=== PATIENT | female | born 1950 | race African-American/Black ===

== ENCOUNTER → 2018-09-30 | Outpatient (CLI) | payer MEDICARE, MEDICAID | END | disposition home or self-care (01) | LOC: MRI 09:01 | PROVIDERS: ATTEND Psychiatry & Neurology Neurology | DX: M47.894 Other spondylosis, thoracic region (principal); M48.061 Spinal stenosis, lumbar region without neurogenic claudication; G95.89 Other specified diseases of spinal cord; M48.02 Spinal stenosis, cervical region | CPT/HCPCS: 72141; 72146; 72148 ==